=== PATIENT | female | born 1960 | race African-American/Black ===

== ENCOUNTER 2018-06-04 05:29 | Inpatient (IN) | payer MEDICAID, SELFPAY ==
[2018-06-04] MEDS ORDERED: Haloperidol Lactate 5 MG/ML VIAL ONE (06:18)
[2018-06-04] MEDS ORDERED: diphenhydrAMINE 25 MG CAP ONE (06:19)
[2018-06-04 06:26] LABS: #Lymphocytes 1.9 thou/uL (1.20-3.40); #Monocytes 0.3 thou/uL (0.11-0.59); #Neutrophils 15.6 thou/uL (1.40-6.50); %Basophils 0.2 % (0.0-1.0); %Eosinophils 0.2 % (0.0-10.0); %Lymphocytes 10.4 % (21.0-51.0); %Monocytes 1.7 % (0.0-10.0); %Neutrophils 87.5 % (42.0-75.0); Hemoglobin 14.2 g/dL (12.0-16.0); Mean Corpuscular HGB CONC 33.3 g/dL (32.0-36.0); Mean Corpuscular Hemoglobin 31.1 pg (27.0-31.0); Mean Corpuscular Volume 93.1 fL (78.0-98.0); Mean Platelet Volume 8.6 fL (7.4-10.4); Platelet Count 297 thou/uL (130-400); RBC Distribution Width 11.5 % (11.5-14.5); Red Blood Cell (RBC) Count 4.58 mill/uL (4.20-5.40); White Blood Cell (WBC) Count 17.8 thou/uL (4.8-10.8)
[2018-06-04 06:53] LABS: ALT (SGPT) 22 U/L (8-55); AST (SGOT) 24 U/L (5-34); Albumin 4.4 g/dL (3.5-5.0); Alkaline Phosphatase 92 U/L (40-150); Anion Gap 18 mmol/L (10-20); BUN (Urea Nitrogen) 19 mg/dL (9.8-20.1); Bilirubin, Total 0.2 mg/dL (0.2-1.2); Calc. Creatinine Clearance 0 mL/min (70-130); Calcium 10.3 mg/dL (7.8-10.44); Carbon Dioxide 26 mmol/L (22-29); Chloride 94 mmol/L (98-107); Estimated GFR-MDRD 62; Globulin 4.4 g/dL (2.4-3.5); Glucose 435 mg/dL (70-105); Lipase 46 U/L (8-78); Potassium 3.6 mmol/L (3.5-5.1); Protein, Total 8.8 g/dL (6.0-8.3); Sodium 134 mmol/L (136-145)
[2018-06-04 06:58] LABS: CKMB 5.3 ng/mL (0-6.6); Troponin I Less than 0.010 ng/mL (< 0.028)
[2018-06-04 07:14] LABS: Bilirubin Negative (Negative); Blood, Urine Negative (Negative); Clarity CLEAR (Clear); Glucose, Urine (Dipstick) >=1000 mg/dL (Negative); Leukocyte Negative (Negative); Nitrite Negative (Negative); Protein, Urine (Dipstick) Negative (Neg-Trace); Specific Gravity, Urine 1.033 (1.002-1.036); Urobilinogen 0.2 mg/dL (0.2-1.0)
[2018-06-04] MEDS ORDERED: Insulin Regular 300 UNITS/3 ML VIAL ONE (07:15)
[2018-06-04] MEDS ORDERED: Morphine 4 MG/ML VIAL ONE (07:36)
[2018-06-04] MEDS ORDERED: Oxymetazoline HCl 0.05% ( 15 ML ) ONE (07:48)
[2018-06-04] MEDS ORDERED: Benzocaine 20% Spray 60 ML CAN ONE (07:48)
[2018-06-04] MEDS ORDERED: Piperacillin/Tazobactam 3.375 GM VIAL ONE ×2 (08:29→13:07)
--- NOTE | 2018-06-04 08:50 | RAD ---
PORTABLE CHEST 1 VIEW: DATE: 06/04/2018. DATE: 5:09 a.m. HISTORY: Abdominal pain. FINDINGS: Comparison is made with the exam of 05/01/2014. The heart size is normal. The lungs are expanded without focal areas of consolidation, pneumothorace s, or pleural effusions. IMPRESSION: No radiographic evidence of acute cardiopulmonary process. POS: [facility]
--- NOTE | 2018-06-04 08:58 | CT ---
ABDOMEN AND PELVIC CT SCAN WITH IV CONTRAST: History: 57-year-old female with history of abdominal pain/perforation. FINDINGS: The lung bases are clear. The liver, gallbladder, pancreas, spleen, adrenal glands are unremarkable. Several small bilateral renal hypodensities statistically small cysts. No evidence for renal calculus or acute obstruction. There are several abnormally dilated small bowel loops in the right upper q uadrant with some associated fat stranding and minimal fluid within the adjacent mesentery. There is no significant more proximal small bowel dilation. 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 There is a patent superior mesenteric artery and inferior mesenteric artery. Normal appearing appendix. Markedly enlarged nodular uterus with calcified and no ncalcified masses, evidence for extensive uterine fibroids. The uterus measures at least 10 x 12 x 14 cm in size. IMPRESSION: Some fairly markedly dilated small bowel loops in the right upper quadrant with some adjacent fat str anding as well as some minimal fluid noted between these loops as well as small amount of free fluid in both gutter regions. Possibilities include that of some type of a closed loop obstruction such as an internal hernia. Given the occlusion of the celiac artery, consideration for focal small bowel isc hemia is also a consideration. Markedly enlarged fibroid uterus. No CT evidence for acute appendiciti s. No renal calculus or obstruction. Findings were discussed with Dr. Ren in the Emergency Department including surgical consultation and evaluation. POS: [facility]
--- NOTE | 2018-06-04 09:35 | RAD ---
ABDOMEN 1 VIEW: HISTORY: A 57-year-old female with a history of abdominal pain/perforation. Sharp upper abdominal pain waking her up last night. COMPARISON: 06/04/2018 CT. An NG tube has been placed with the tip extending into the stomach. There are some f luid-filled small bowel loops noted in the right upper quadrant. There is some gas within some mildl y dilated small bowel loops in the upper abdomen near the midline and just to the right of the midlin e. Large left-sided pelvic mass with some calcifications, evidence for a fibroid uterus. IMPRESSION: Nasogastric tube in place. There are some fluid-filled dilated small bowel loops in the right upper quadrant as well as some air and fluid within several small bowel loops within the right upper quadra nt near the midline, evidence for a small bowel obstruction. Findings on the prior CT scan raise concern for a closed loop-type obstruction or possibly some early enteritis or even focal small bowel ischemia. Continued short-term followup. POS: [facility]
[2018-06-04] MEDS ORDERED: ISOVUE-370 76%-LOCM 1 ML ONE (09:58)
--- NOTE | 2018-06-04 10:08 | HP ---
DATE OF ADMISSION: 06/04/2018 HISTORY OF PRESENT ILLNESS: Hina Mustafa is a 57-year-old black female, who lives with her daught ers in [place], [place]. The patient at midnight awoke with severe right upper quadrant pain, radiating to her back. She has never had such pain before. CT scan of her abdomen and pelvis revealed changes suggestive of an internal hernia with a closed loop bowel obstruction. NG tube has been placed. Th e patient has not had any vomiting. ALLERGIES: None. TOBACCO: None, cessation 6 years ago, abuse prior to that. ALCOHOL: None. MEDICATIONS: Gabapentin 300 mg a day, lisinopril/hydrochlorothiazide 20/12.5 every day, glyburide 1. 25 mg p.o. daily, cyclobenzaprine 10 mg p.o. t.i.d. p.r.n. She is followed by Dr. Barreto in [place]. PAST SURGICAL HISTORY: Tubal ligation. PAST MEDICAL HISTORY: Diabetes mellitus, non-insulin dependent; hypertension; chronic low back pain, treated with gabapentin and cyclobenzaprine. The patient had a colonoscopy 8 or 9 years ago that wa s normal. Colonoscopy 8 or 9 years ago. REVIEW OF SYSTEMS: Noncontributory. Cardiac: Asymptomatic, no cardiac symptoms. PHYSICAL EXAMINATION: VITAL SIGNS: Heart rate 74, respiratory rate 16, blood pressure 140/72. HEAD, EARS, EYES, NOSE, AND THROAT: Unremarkable. LUNGS: Clear to auscultation. CARDIAC: Regular rate and rhythm without murmur, rub, or gallop. EXTREMITIES: Unremarkable. No ankle edema. ABDOMEN: Slightly distended. Tenderness in right upper quadrant with guarding. LABORATORY DATA: White count 17, hemoglobin 14. Sodium 134, potassium 3.6, CO2 of 26, BUN and creat inine 19 and 1.09. Chest x-ray, no acute disease. ASSESSMENT AND PLAN: Bowel obstruction, closed loop obstruction of uncertain etiology. She has only had a tubal ligation in the past. We will plan diagnostic laparoscopy and indicated procedures. I have discussed with the patient and the family, they are agreeable to diagnostic laparoscopy/laparoto my as indicated in the indicated procedures.
[2018-06-04] MEDS ORDERED: Fentanyl 100 MCG/2 ML VIAL ONE ×2 (12:38)
[2018-06-04] MEDS ORDERED: Bupivacaine HCl 0.5%/Epinephrine 1:200,000/PF 30 ml Vial ONE (13:11)
[2018-06-04] MEDS ORDERED: Ondansetron ODT 4 MG TAB PO PRN (14:13)
[2018-06-04] MEDS ORDERED: Dextrose 50% Abboject 50 ML SYRINGE SLOW IVP PRN (14:13)
[2018-06-04] MEDS ORDERED: Dextrose 5% in Water 1,000 ML IV PRN (14:13)
[2018-06-04] MEDS ORDERED: Ondansetron PF 4 MG/2 ML Vial IVP PRN (14:13)
[2018-06-04] MEDS ORDERED: Ondansetron ODT 8 MG TAB PO PRN (14:17)
[2018-06-04] MEDS ORDERED: Ondansetron ODT 8 MG TAB SL PRN (14:17)
[2018-06-04] MEDS ORDERED: Sodium Chloride 0.9% 1,000 ML IV SCH ×3 (14:30→20:30)
[2018-06-04] MEDS ORDERED: Ondansetron HCl/PF 4 MG/2 ML Vial IVP PRN (14:49)
[2018-06-04] MEDS ORDERED: Promethazine HCl 25 MG/ML VIAL SLOW IVP PRN (14:49)
[2018-06-04] MEDS ORDERED: Promethazine HCl 25 MG/ML VIAL IM PRN (14:49)
--- NOTE | 2018-06-04 17:33 | OP ---
DATE OF PROCEDURE: 06/04/2018 PREOPERATIVE DIAGNOSIS: Small-bowel obstruction secondary to internal hernia in a patient with only a prior history of bilateral tubal ligation. POSTOPERATIVE DIAGNOSIS: Small-bowel obstruction secondary to internal hernia in a patient with only a prior history of bilateral tubal ligation. PROCEDURE: Laparoscopy converted to laparotomy with lysis of adhesions and repair of enterotomy stap le site. SURGEON: Steve Stubbs M.D. ANESTHESIA: General. Local with 0.5% Marcaine with epinephrine 30 mL. PROCEDURE IN DETAIL: The patient was taken to the operating room where under general anesthesia, abd omen was prepared with ChloraPrep and draped in routine fashion. Left lateral subcostal incision mad e. Pneumoperitoneum to 15 mmHg obtained with the Veress needle, replacing it with a 5 port laparosco pe inserted. Left lateral mid abdominal incision made and a 5 port placed. Left lower quadrant inci gamaliel made and a 5 port placed, both under laparoscopic visualization. Eventually, an infraumbilical incision was made and another [address] In the right upper quadrant, correlating with CAT scan, there was internal hernia adhesion. I attempted to take this down laparoscopically, but I just could not visualize as the obstruction was too tight, thus a midline laparotomy was made in the upper abdo men, carried down to skin and subcutaneous tissue to the midline fascia and abdominal cavity sharply. The internal hernia process pulled up into the wound and adhesions taken down, releasing the international accounting manager al hernia and the ischemic bowel regained viability. There was a small enterotomy closed with stapler YANDEL blue load after approximating the serosa mucosa with 3-0 silk. Small mesenteric tear wit h bleeding controlled with cautery and 3-0 silk suture. Abdominal cavity irrigated and irrigant evac uated. Hemostasis noted. Skin and subcutaneous tissues irrigated. Sponge and needle counts were co rrect. Midline fascia closed with #1 PDS and skin and subcutaneous tissues irrigated. Skin approxim ated with rina as well as laparoscopic sites and Prevena dressing applied.
[2018-06-04 17:39] LABS: Hemoglobin 12.6 g/dL (12.0-16.0)
[2018-06-04] MEDS ORDERED: PHENYLEPHRINE-NS 100 MCG/ML 10 ML SYRINGE ONE (17:41)
[2018-06-04] MEDS ORDERED: Lidocaine 1% PF 5 ML VIAL ONE (17:41)
[2018-06-04] MEDS ORDERED: Ketorolac Tromethamine 30 MG/ML VIAL ONE (17:41)
[2018-06-04] MEDS ORDERED: Naloxone HCl 0.4 mg/ml Vial ONE (17:41)
[2018-06-04] MEDS ORDERED: Succinylcholine Chloride 20 MG/ML 10 ml SYRINGE FS ONE (17:41)
[2018-06-04] MEDS ORDERED: PROPOFOL 200 MG/20 ML VIAL ONE (17:41)
[2018-06-04] MEDS ORDERED: Ondansetron PF 4 MG/2 ML Vial ONE (17:41)
[2018-06-04] MEDS ORDERED: Glycopyrrolate 0.2 MG/ML 5 ML SYRINGE ONE (17:41)
[2018-06-04 18:57] VITALS: BMI 26.9
[2018-06-04] MEDS: Acetaminophen 1,000 MG in Premix Bag 1 BAG IVPB SCH ×2 (19:20→23:51)
[2018-06-04] MEDS: Ketorolac Tromethamine 30 MG/ML VIAL IVP SCH ×2 (19:21→23:51)
[2018-06-04] MEDS: Enoxaparin Sodium 40 MG/0.4 ML SYRINGE SC SCH (20:03)
[2018-06-04] MEDS: NS 0.9% w/ 20 MEQ KCL 1,000 ML IV SCH ×2 (20:05)
[2018-06-04] MEDS ORDERED: Naloxone HCl 0.4 mg/ml Vial IVP SCH (20:30)
[2018-06-04 20:36] LABS: #Lymphocytes 1.8 thou/uL (1.20-3.40); #Monocytes 0.6 thou/uL (0.11-0.59); #Neutrophils 11.3 thou/uL (1.40-6.50); %Basophils 0.2 % (0.0-1.0); %Eosinophils 0.3 % (0.0-10.0); %Monocytes 4.5 % (0.0-10.0); %Neutrophils 82.1 % (42.0-75.0); Mean Corpuscular HGB CONC 32.8 g/dL (32.0-36.0); Mean Corpuscular Hemoglobin 30.8 pg (27.0-31.0); Mean Corpuscular Volume 94.1 fL (78.0-98.0); Mean Platelet Volume 8.2 fL (7.4-10.4); Platelet Count 229 thou/uL (130-400); RBC Distribution Width 11.4 % (11.5-14.5); Red Blood Cell (RBC) Count 3.89 mill/uL (4.20-5.40); White Blood Cell (WBC) Count 13.8 thou/uL (4.8-10.8)
[2018-06-04] MEDS ORDERED: Cyclobenzaprine 10 MG TAB PO PRN (21:01)
[2018-06-05] MEDS: Ketorolac Tromethamine 30 MG/ML VIAL IVP SCH ×4 (05:14→23:48)
[2018-06-05] MEDS: Acetaminophen 1,000 MG in Premix Bag 1 BAG IVPB SCH ×2 (05:14→11:50)
[2018-06-05] MEDS: NS 0.9% w/ 20 MEQ KCL 1,000 ML IV SCH ×3 (05:18→23:51)
[2018-06-05 05:28] LABS: #Eosinphils 0.1 thou/uL (0.0-0.7); #Lymphocytes 1.3 thou/uL (1.20-3.40); #Monocytes 0.3 thou/uL (0.11-0.59); #Neutrophils 8.2 thou/uL (1.40-6.50); %Basophils 0.4 % (0.0-1.0); %Eosinophils 0.5 % (0.0-10.0); %Lymphocytes 13.5 % (21.0-51.0); %Monocytes 3.4 % (0.0-10.0); %Neutrophils 82.1 % (42.0-75.0); Hemoglobin 10.6 g/dL (12.0-16.0); Mean Corpuscular HGB CONC 31.9 g/dL (32.0-36.0); Mean Corpuscular Hemoglobin 30.1 pg (27.0-31.0); Mean Corpuscular Volume 94.2 fL (78.0-98.0); Mean Platelet Volume 8.8 fL (7.4-10.4); Platelet Count 207 thou/uL (130-400); RBC Distribution Width 11.6 % (11.5-14.5); Red Blood Cell (RBC) Count 3.53 mill/uL (4.20-5.40)
[2018-06-05 05:35] LABS: ALT (SGPT) 14 U/L (8-55); AST (SGOT) 16 U/L (5-34); Alkaline Phosphatase 57 U/L (40-150); Anion Gap 8 mmol/L (10-20); BUN (Urea Nitrogen) 17 mg/dL (9.8-20.1); Bilirubin, Total 0.7 mg/dL (0.2-1.2); Calc. Creatinine Clearance 78 mL/min (70-130); Calcium 7.9 mg/dL (7.8-10.44); Carbon Dioxide 25 mmol/L (22-29); Chloride 109 mmol/L (98-107); Estimated GFR-MDRD 81; Globulin 2.9 g/dL (2.4-3.5); Glucose 226 mg/dL (70-105); Potassium 3.7 mmol/L (3.5-5.1); Protein, Total 5.9 g/dL (6.0-8.3); Sodium 138 mmol/L (136-145)
[2018-06-05] MEDS: HumaLOG 300 UNITS/3 ML VIAL SC PRN ×3 (06:01→21:11)
[2018-06-05] MEDS: Gabapentin 300 MG CAP PO SCH (08:59)
[2018-06-05] MEDS: Lisinopril/Hydrochlorothiazide 20 mg/12.5 mg Tablet PO SCH (08:59)
[2018-06-05] MEDS: glyBURIDE 2.5 MG TAB PO SCH (08:59)
[2018-06-05] MEDS ORDERED: Prevnar 13-Val Conj/PF 0.5 ML SYRINGE IM ONE (09:00)
[2018-06-05] MEDS: Acetaminophen 500 MG TAB PO SCH ×2 (17:10→23:50)
[2018-06-05] MEDS: Enoxaparin Sodium 40 MG/0.4 ML SYRINGE SC SCH (21:11)
[2018-06-06] MEDS: Acetaminophen 500 MG TAB PO SCH ×2 (05:10→11:24)
[2018-06-06] MEDS: Ketorolac Tromethamine 30 MG/ML VIAL IVP SCH ×2 (05:10→11:25)
[2018-06-06] MEDS: NS 0.9% w/ 20 MEQ KCL 1,000 ML IV SCH ×2 (07:11→12:17)
[2018-06-06] MEDS: Gabapentin 300 MG CAP PO SCH (08:31)
[2018-06-06] MEDS: glyBURIDE 2.5 MG TAB PO SCH (08:39)
[2018-06-06] MEDS: Lisinopril/Hydrochlorothiazide 20 mg/12.5 mg Tablet PO SCH (08:40)
[2018-06-06 11:22] VITALS: BP 126/80; TEMP 98
[2018-06-06] MEDS: HumaLOG 300 UNITS/3 ML VIAL SC PRN (11:24)
--- NOTE | 2018-06-06 14:31 | PRG ---
DATE OF SERVICE: 06/06/2018 SUBJECTIVE: Ms. Mustafa is doing well. She is tolerating her diet. She has passed flatus. OBJECTIVE: LUNGS: Clear to auscultation. CARDIAC: Regular rate and rhythm without murmur or gallop. ABDOMEN: Soft, nontender. Incisional wound VAC Prevena removed. Staple line intact. Abdomen is sof t. Good bowel sounds. ASSESSMENT AND PLAN: The patient is doing well. We will plan discharge home with ibuprofen, Tylenol , Ultram p.r.n. pain. Resume home medications. Follow up in my office in 1-2 weeks. Resume diabeti c diet. Resume home medications.
--- NOTE | 2018-06-06 16:06 | DIS ---
DATE OF ADMISSION: 06/04/2018 DATE OF DISCHARGE: 06/06/2018 DISCHARGE DIAGNOSES: Closed loop bowel obstruction with ischemic small bowel, regained viability aft er release of obstructive process and the patient with no prior history of surgeries. DISCHARGE HOME MEDICATIONS: Ibuprofen, Tylenol [id number] for pain, Ultram p.r.n. pain, #20, p rescription for 2 refills given. Home medications resume, tramadol p.r.n., Flexeril p.r.n., glyburid e 1.25 mg daily, lisinopril/hydrochlorothiazide daily, gabapentin 300 mg a day, Tylenol p.r.n. pain. DISCHARGE FOLLOWUP: Follow up in my office in 1-2 weeks. HOSPITAL COURSE: A 57-year-old black female with acute onset of abdominal pain, [facility] scan revealed changes suggestive of closed loop obstruction. She was taken urgentl y to the operating room. After receiving intravenous fluids and antibiotics, underwent laparoscopy, converted to open operation, releasing the adhesions and closing the small enterotomy with minimal sp illage. Postoperatively, she had a Prevena wound VAC removed prior to discharge. She tolerated her diet, had bowel function and to resume her home medications. No lifting over 25 pounds.
--- NOTE | 2018-06-08 23:28 | EKG ---
Test Reason : Blood Pressure : / mmHG Vent. Rate : 103 BPM Atrial Rate : 103 BPM P-R Int : 144 ms QRS Dur : 088 ms QT Int : 378 ms P-R-T Axes : 067 011 069 degrees QTc Int : 495 ms Sinus tachycardia Possible Left atrial enlargement Anterior infarct , age undetermined Abnormal ECG Confirmed by ERICA ABURTO [id number]), department editor IRLANDA QUESADA ([id number]) on 06/08/2018 11:28:33 PM Referred By: Confirmed By:ERICA ABURTO
== END 2018-06-06 14:30 | disposition home or self-care (01) | DRG 331 ==
LOC: ERS 05:29 → SDC 11:15 → SURG A 14:13
PROVIDERS: ADMIT Specialist; ATTEND Specialist
PROC: 0DQ80ZZ Repair Small Intestine, Open Approach (ICD-10-PCS; principal; 2018-06-04)
PROC: 0DNW0ZZ Release Peritoneum, Open Approach (ICD-10-PCS; 2018-06-04)
DX: K46.0 Unspecified abdominal hernia with obstruction, without gangrene (principal); K66.0 Peritoneal adhesions (postprocedural) (postinfection)
CPT/HCPCS: 36415; 36416; 71045; 74018; 74177; 80053; 81003; 82553; 83690; 84484; 85025; 86850; 86900; 86901; 90471; 90670; 90686; 93005; 96361; 96365; 96375; G0008; G0009; J0131; J0670; J1630; J1650; J1815; J1885; J2001; J2270; J2310; J2405; J2543; J2704; J3010

== ENCOUNTER 2018-06-26 14:26 | Outpatient (CLI) | payer OTHER ==
--- NOTE | 2018-06-26 14:53 | RAD ---
LUMBAR SPINE 2 VIEWS: HISTORY: [id number]. Low back pain. COMPARISON: Radiographs from 2001. FINDINGS: There is mild levoscoliosis of the lumbar spine, new since 2011. There is mild bilateral SI joint de generative disease. Moderate facet arthrosis L3-S1. No acute fracture or malalignment is appreciated. Multiple calcifications are seen over the lower ab dominal and pelvic torres may be sequelae of uterine fibroids. IMPRESSION: Chronic degenerative changes. No acute abnormality. POS: [facility]
== END 2018-06-26 14:27 | disposition home or self-care (01) ==
LOC: BICRAD 14:26
PROVIDERS: ATTEND Internal Medicine
DX: Z02.71 Encounter for disability determination (principal); M47.816 Spondylosis without myelopathy or radiculopathy, lumbar region
CPT/HCPCS: 72100

== ENCOUNTER 2020-12-20 12:35 | Outpatient (CLI) | payer MEDICARE, MEDICAID | END 2020-12-20 12:36 | disposition home or self-care (01) | LOC: BICULT 12:35 | PROVIDERS: ATTEND Internal Medicine Nephrology | DX: N18.1 Chronic kidney disease, stage 1 (principal); R80.9 Proteinuria, unspecified; N28.1 Cyst of kidney, acquired; D25.9 Leiomyoma of uterus, unspecified | CPT/HCPCS: 76770 ==

== ENCOUNTER 2020-12-28 13:37 | Outpatient (CLI) | payer MEDICARE, MEDICAID | END 2020-12-28 13:38 | disposition home or self-care (01) | LOC: BICMAMMO 13:37 | PROVIDERS: ATTEND Nurse Practitioner Family | DX: Z13.820 Encounter for screening for osteoporosis (principal); Z78.0 Asymptomatic menopausal state | CPT/HCPCS: 77080 ==

== ENCOUNTER 2022-02-22 12:36 | Outpatient (CLI) | payer MEDICARE, OTHER | END 2022-02-22 12:37 | disposition home or self-care (01) | LOC: TBSIIMAG 12:36 | PROVIDERS: ATTEND Physician Assistant | DX: M47.12 Other spondylosis with myelopathy, cervical region (principal); M54.50 Low back pain, unspecified; M47.816 Spondylosis without myelopathy or radiculopathy, lumbar region | CPT/HCPCS: 72141; 72148 ==

== ENCOUNTER 2022-08-31 10:04 | Outpatient (CLI) | payer MEDICARE, OTHER | END 2022-08-31 10:05 | disposition home or self-care (01) | LOC: CT 10:04 | PROVIDERS: ATTEND Psychiatry & Neurology Neurology | DX: G20 Parkinson's disease (principal); G62.9 Polyneuropathy, unspecified | CPT/HCPCS: 70450; 78803; A9584 ×2 ==

== ENCOUNTER 2023-04-02 10:19 | Outpatient (CLI) | payer MEDICARE, MEDICAID ==
[2023-04-02 11:38] LABS: #Eosinphils 0.2 10x3/uL (0.0-0.5); #Monocytes 0.3 10x3/uL (0.0-1.1); #Neutrophils 4.2 10x3/uL (1.5-8.4); %Basophils 0.6 % (0.0-2.0); %Eosinophils 2.5 % (0.0-6.0); %Monocytes 4.5 % (0.0-10.0); %Neutrophils 61.1 % (40.0-75.0); Hematocrit 41.9 % (34.9-44.5); Hemoglobin 13.9 g/dL (12.0-15.5); Mean Corpuscular HGB CONC 33.2 g/dL (32.0-36.0); Mean Corpuscular Hemoglobin 30.2 pg (27.0-33.0); Mean Corpuscular Volume 91.1 fl (81.6-98.3); Mean Platelet Volume 10.4 fl (7.4-10.4); Platelet Count 244 10x3/uL (150-450); RBC Distribution Width 12.7 % (11.5-14.5); White Blood Cell (WBC) Count 6.8 10x3/uL (3.5-10.5)
[2023-04-02 12:14] LABS: Anion Gap 14 mmol/L (10-20); BUN (Urea Nitrogen) 8 mg/dL (9.8-20.1); Calc. Creatinine Clearance 0 mL/min (70-130); Calcium 9.1 mg/dL (7.8-10.44); Carbon Dioxide 28 mmol/L (23-31); Chloride 102 mmol/L (98-107); Estimated GFR 95; Glucose 89 mg/dL (80-115); Potassium 3.8 mmol/L (3.5-5.1); Sodium 140 mmol/L (136-145)
== END 2023-04-02 10:20 | disposition home or self-care (01) ==
LOC: LABBT 10:19
PROVIDERS: ATTEND Orthopaedic Surgery Hand Surgery
DX: Z01.818 Encounter for other preprocedural examination (principal); M21.942 Unspecified acquired deformity of hand, left hand; M24.542 Contracture, left hand
CPT/HCPCS: 80048; 85025; 93005; 93010

== ENCOUNTER 2023-04-06 09:59 | Day surgery (SDC) | payer MEDICARE, MEDICAID ==
[2023-04-02 11:30] VITALS: BMI 24.1
[2023-04-06] MEDS ORDERED: fentaNYL PF 100 MCG/2 ML SYRINGE ONE (14:06)
[2023-04-06] MEDS ORDERED: Propofol 500 MG/50 ML VIAL ONE (14:10)
[2023-04-06] MEDS ORDERED: CEFAZOLIN 2 GM VIAL ONE (14:13)
[2023-04-06] MEDS ORDERED: Sodium Chloride 0.9% 100 ML ONE (14:13)
[2023-04-06] MEDS ORDERED: Sevoflurane 250 ML INH ANEST BOTTLE ONE (14:16)
[2023-04-06] MEDS ORDERED: Midazolam HCl 2 mg/2 ml Vial ONE (14:39)
== END 2023-04-06 16:55 | disposition home or self-care (01) ==
LOC: SDC 09:59
PROVIDERS: ATTEND Orthopaedic Surgery Hand Surgery
PROC: 3E023GC Introduction of Other Therapeutic Substance into Muscle, Percutaneous Approach (ICD-10-PCS; principal; 2023-04-06)
DX: M24.522 Contracture, left elbow (principal); M21.942 Unspecified acquired deformity of hand, left hand; E11.9 Type 2 diabetes mellitus without complications; I10 Essential (primary) hypertension; E78.5 Hyperlipidemia, unspecified; Z79.84 Long term (current) use of oral hypoglycemic drugs; Z79.899 Other long term (current) drug therapy
CPT/HCPCS: 64642; J0585; J2250; J2704; J3490

== ENCOUNTER 2024-01-15 14:12 | Outpatient (CLI) | payer MEDICARE, MEDICAID | END 2024-01-15 14:13 | disposition home or self-care (01) | LOC: BICMAMMO 14:12 | PROVIDERS: ATTEND Family Medicine | DX: Z12.31 Encounter for screening mammogram for malignant neoplasm of breast (principal); N64.89 Other specified disorders of breast; Z80.3 Family history of malignant neoplasm of breast | CPT/HCPCS: 77063; 77067 ==

== ENCOUNTER 2024-01-25 13:11 | Outpatient (CLI) | payer MEDICARE, MEDICAID | END 2024-01-25 13:12 | disposition home or self-care (01) | LOC: BICMAMMO 13:11 | PROVIDERS: ATTEND Family Medicine | DX: R92.1 Mammographic calcification found on diagnostic imaging of breast (principal) | CPT/HCPCS: 77065; G0279 ==